=== PATIENT | female | born 1980 | race Caucasian/White ===

== ENCOUNTER 2017-12-15 10:25 | Inpatient (IN) | payer OTHER ==
[2017-12-15] MEDS ORDERED: IOPAMIDOL (ISOVUE-300) 100 ML BTL ONE (10:45)
[2017-12-15 10:48] LABS: PLATELET COUNT 229 10^3/uL (150-400)
--- NOTE | 2017-12-15 10:49 | EDPHY ---
H & P Time Seen by Provider: 12/15/17 10:35 HPI/ROS: CHIEF COMPLAINT: Head injury, full trauma team activation HISTORY OF PRESENT ILLNESS: 29-year-old female presents with a head injury after a fall. She was at work, standing on a dumpster and apparently fell off the dumpster directly onto her head. Positive loss of consciousness. Confused on scene, complaining of a severe headache. On EMS arrival, she was confused and had a scalp laceration. Also complaining of left shoulder pain. Full trauma team activation called. Fentanyl 50 mcg IV given in route. REVIEW OF SYSTEMS: complete 10 point ROS reviewed and is negative except for the noted elements in the HPI - Social History Alcohol Use: Sober Additional Social History: - Physical Exam Exam: General Appearance: Alert, complaining of headache Head: Right temporal scalp laceration, no active bleeding Eyes: No conjunctival erythema, PERRLA, EOMI ENT, Mouth: No hemotympanum, no oral trauma, no facial bony tenderness Neck: In cervical spine collar Respiratory: No chest wall tenderness, lungs clear bilaterally Cardiovascular: Regular rate and rhythm Abdomen: Abdomen is soft and nontender Skin: no abrasions Back: Log-rolled, normal inspection, no midline T/L/S tenderness Extremities: Pelvis is stable and nontender; left shoulder tenderness without deformity, no other extremity tenderness or deformity Neurological: A&Ox3, normal motor function, cranial nerves intact Vascular: 2+ radial pulses Constitutional: Initial Vital Signs Temperature (C) 36.8 C 12/15/17 12:51 Heart Rate 96 12/15/17 12:51 Respiratory Rate 12 12/15/17 12:51 Blood Pressure 124/73 H 12/15/17 12:51 O2 Sat (%) 95 12/15/17 12:51 Allergies/Adverse Reactions: No Known Allergies Allergy (Verified 12/15/17 13:52) Home Medications: Medication Instructions Recorded NK [No Known Home Meds] 12/15/17 Medical Decision Making - Diagnostics Imaging Results: Imaging Impressions Cervical Spine CT 12/15/17 10:32 Impression: 1. Acute subarachnoid hemorrhage. Blood is possibly originating in the prepontine cistern near the basilar artery tip. 2. Nondisplaced right temporal bone fracture with associated fluid in the mastoid air cells and middle ear cavity. Parapharyngeal air is probably related to this fracture. 3. Negative for cervical spine fracture. Findings and recommendations discussed with [facility] trauma surgeon at 1110 hour, . Head CT 12/15/17 10:32 Impression: 1. Acute subarachnoid hemorrhage. Blood is possibly originating in the prepontine cistern near the basilar artery tip. 2. Nondisplaced right temporal bone fracture with associated fluid in the mastoid air cells and middle ear cavity. Parapharyngeal air is probably related to this fracture. 3. Negative for cervical spine fracture. Findings and recommendations discussed with [facility] trauma surgeon at 1110 hour, . Abdomen CT 12/15/17 10:35 Impression: 1. Age-indeterminate, possibly old/subacute nondisplaced fracture through the superior aspect of the T12 spinous process. 2. 7 mm left lower lobe nodule. The 2017 Fleischner Society Guidelines recommend followup unenhanced chest CT in 6-12 months for a low risk patient, then consider additional followup at 18-24 months. For a high risk patient, followup CT is recommended in 6-12 months, then again at 18-24 months if there is no change. 3. Moderate paraseptal emphysema. 4. Mildly prominent prevascular lymph node, which can also be followed in [address] 5. Additional findings as above. Findings discussed with Dr. Diane Ruby on 12/15/2017 at 11:40. Findings discussed with Dr. Jeremi Dukes today at [address] 12/15/17 10:35 Impression: 1. Age-indeterminate, possibly old/subacute nondisplaced fracture through the superior aspect of the T12 spinous process. 2. 7 mm left lower lobe nodule. The 2017 Fleischner Society Guidelines recommend followup unenhanced chest CT in 6-12 months for a low risk patient, then consider additional followup at 18-24 months. For a high risk patient, followup CT is recommended in 6-12 months, then again at 18-24 months if there is no change. 3. Moderate paraseptal emphysema. 4. Mildly prominent prevascular lymph node, which can also be followed in [address] 5. Additional findings as above. Findings discussed with Dr. Diane Ruby on 12/15/2017 at 11:40. Findings discussed with Dr. Jeremi Dukes today at [address] 12/15/17 10:35 Impression: 1. Age-indeterminate, possibly old/subacute nondisplaced fracture through the superior aspect of the T12 spinous process. 2. 7 mm left lower lobe nodule. The 2017 Fleischner Society Guidelines recommend followup unenhanced chest CT in 6-12 months for a low risk patient, then consider additional followup at 18-24 months. For a high risk patient, followup CT is recommended in 6-12 months, then again at 18-24 months if there is no change. 3. Moderate paraseptal emphysema. 4. Mildly prominent prevascular lymph node, which can also be followed in [address] 5. Additional findings as above. Findings discussed with Dr. Diane Ruby on 12/15/2017 at 11:40. Findings discussed with Dr. Jeremi Dukes today at [address] 12/15/17 10:35 Impression: 1. Age-indeterminate, possibly old/subacute nondisplaced fracture through the superior aspect of the T12 spinous process. 2. 7 mm left lower lobe nodule. The 2017 Fleischner Society Guidelines recommend followup unenhanced chest CT in 6-12 months for a low risk patient, then consider additional followup at 18-24 months. For a high risk patient, followup CT is recommended in 6-12 months, then again at 18-24 months if there is no change. 3. Moderate paraseptal emphysema. 4. Mildly prominent prevascular lymph node, which can also be followed in [address] 5. Additional findings as above. Findings discussed with Dr. Diane Ruby on 12/15/2017 at 11:40. Findings discussed with Dr. Jeremi Dukes today at 1125 hours. Chest X-Ray 12/15/17 10:51 Impression: Potential cardiomegaly. A routine PA and lateral chest would be useful if and when the patient is clinically able. The patient's pending chest CT will be helpful. Pelvis X-Ray 12/15/17 10:51 Impression: Negative Imaging: Discussed imaging studies w/ slip caster Radiologist, I viewed and interpreted images myself ED Course/Re-evaluation: This patient presents as a full trauma activation with severe headache after a fall. Physical exam reveals a scalp laceration. Neurologic exam is normal. To CT scan accompanied by Dr. Dukes and the ED RN. Upon return from CT scan, the scalp laceration was sutured by Dr. Dukes medical student. CT results per the radiologist reveal a subarachnoid hemorrhage and temporal skull fracture. The patient's neurologic exam was unchanged throughout her emergency department stay. No evidence of other injuries. She will be admitted to the intensive care unit for serial neurologic evaluations. I spent a total of 35 minutes of critical care time in obtaining history, performing a physical exam, bedside monitoring of interventions, collecting and interpreting tests and discussion with consultants but not including time spent performing procedures. Organ at risk: Brain Differential Diagnosis: Differential diagnosis includes though it is not limited to fracture, intracranial hemorrhage, pneumothorax, hemothorax, intra-abdominal hemorrhage. - Data Points Laboratory Results: Laboratory Results 12/15/17 10:35 12/15/17 10:35 12/15/17 12/15/17 12/15/17 10:48 10:39 10:35 WBC RBC Hgb POC Hgb 13.3 gm/dL gm/dL 12.6 gm/dL gm/dL (12.6-16.3) (12.6-16.3) Hct POC Hct 39 % % 37 % L % (38-47) (38-47) MCV MCH MCHC RDW Plt Count MPV Neut % (Auto) Lymph % (Auto) Sierra % (Auto) Eos % (Auto) Baso % (Auto) Nucleat RBC Rel Count Absolute Neuts (auto) Absolute Lymphs (auto) Absolute Monos (auto) Absolute Eos (auto) Absolute Basos (auto) Absolute Nucleated RBC Immature Gran % Immature Gran # POC Sodium 144 mEq/L mEq/L 143 mEq/L mEq/L (135-145) (135-145) Sodium POC Potassium 3.4 mEq/L mEq/L 3.4 mEq/L mEq/L (3.3-5.0) (3.3-5.0) Potassium POC Chloride 106 mEq/L mEq/L 106 mEq/L mEq/L (97-110) (97-110) Chloride Carbon Dioxide Anion Gap POC BUN 16 mg/dL mg/dL 16 mg/dL mg/dL (7-23) (7-23) BUN Creatinine POC Creatinine 0.6 mg/dL mg/dL 0.7 mg/dL mg/dL (0.6-1.0) (0.6-1.0) Estimated GFR Glucose POC Glucose 83 mg/dL mg/dL 85 mg/dL mg/dL (70-100) (70-100) Calcium Beta HCG, Qual NEGATIVE 12/15/17 12/15/17 10:35 10:35 WBC 7.39 10^3/uL 10^3/uL (3.80-9.50) RBC 4.59 10^6/uL 10^6/uL (4.18-5.33) Hgb 13.2 g/dL g/dL (12.6-16.3) POC Hgb Hct 39.5 % % (38.0-47.0) POC Hct MCV 86.1 fL fL (81.5-99.8) MCH 28.8 pg pg (27.9-34.1) MCHC 33.4 g/dL g/dL (32.4-36.7) RDW 14.6 % % (11.5-15.2) Plt Count 229 10^3/uL 10^3/uL (150-400) MPV 9.4 fL fL (8.7-11.7) Neut % (Auto) 76.4 % H % (39.3-74.2) Lymph % (Auto) 16.9 % % (15.0-45.0) Sierra % (Auto) 6.0 % % (4.5-13.0) Eos % (Auto) 0.1 % L % (0.6-7.6) Baso % (Auto) 0.5 % % (0.3-1.7) Nucleat RBC Rel Count 0.0 % % (0.0-0.2) Absolute Neuts (auto) 5.64 10^3/uL 10^3/uL (1.70-6.50) Absolute Lymphs (auto) 1.25 10^3/uL 10^3/uL (1.00-3.00) Absolute Monos (auto) 0.44 10^3/uL 10^3/uL (0.30-0.80) Absolute Eos (auto) 0.01 10^3/uL L 10^3/uL (0.03-0.40) Absolute Basos (auto) 0.04 10^3/uL 10^3/uL (0.02-0.10) Absolute Nucleated RBC 0.00 10^3/uL 10^3/uL (0-0.01) Immature Gran % 0.1 % % (0.0-1.1) Immature Gran # 0.01 10^3/uL 10^3/uL (0.00-0.10) POC Sodium Sodium 143 mEq/L mEq/L (135-145) POC Potassium Potassium 3.7 mEq/L mEq/L (3.3-5.0) POC Chloride Chloride 106 mEq/L mEq/L (97-110) Carbon Dioxide 27 mEq/l mEq/l (22-31) Anion Gap 10 mEq/L mEq/L (8-16) POC BUN BUN 18 mg/dL mg/dL (7-23) Creatinine 0.6 mg/dL mg/dL (0.6-1.0) POC Creatinine Estimated GFR > 60 Glucose 80 mg/dL mg/dL (70-100) POC Glucose Calcium 9.4 mg/dL mg/dL (8.5-10.4) Beta HCG, Qual Medications Given: Morphine Sulfate (Morphine) 2 - 5 mg IVP Q1HR PRN PRN Reason: Pain, Severe Unable to Take PO Stop: 12/25/17 11:51 Last Admin: 12/15/17 15:30 Dose: 5 mg Discontinued Medications Diphtheria/Tetanus/Acell Pertussis (Boostrix) 0.5 ml IM .ONCE ONE Stop: 12/15/17 11:19 Last Admin: 12/15/17 11:30 Dose: 0.5 ml Hydromorphone HCl (Dilaudid) 0.5 mg IVP EDNOW ONE Stop: 12/15/17 11:19 Last Admin: 12/15/17 10:48 Dose: 0.5 mg Hydromorphone HCl (Dilaudid) 1 mg IVP EDNOW ONE Stop: 12/15/17 11:21 Last Admin: 12/15/17 11:22 Dose: 1 mg Morphine Sulfate (Morphine) 4 mg IVP EDNOW ONE Stop: 12/15/17 11:19 Last Admin: 12/15/17 10:33 Dose: 4 mg Morphine Sulfate (Morphine) 4 mg IVP EDNOW ONE Stop: 12/15/17 11:19 Last Admin: 12/15/17 10:28 Dose: 4 mg Ondansetron HCl (Zofran) 4 mg IVP EDNOW ONE Stop: 12/15/17 11:19 Last Admin: 12/15/17 10:27 Dose: 4 mg Point of Care Test Results: Chemistry 12/15/17 12/15/17 10:48 10:39 POC Sodium 144 mEq/L mEq/L 143 mEq/L mEq/L (135-145) (135-145) POC Potassium 3.4 mEq/L mEq/L 3.4 mEq/L mEq/L (3.3-5.0) (3.3-5.0) POC Chloride 106 mEq/L mEq/L 106 mEq/L mEq/L (97-110) (97-110) POC BUN 16 mg/dL mg/dL 16 mg/dL mg/dL (7-23) (7-23) POC Creatinine 0.6 mg/dL mg/dL 0.7 mg/dL mg/dL (0.6-1.0) (0.6-1.0) POC Glucose 83 mg/dL mg/dL 85 mg/dL mg/dL (70-100) (70-100) ISTAT H&H 12/15/17 12/15/17 10:48 10:39 POC Hgb 13.3 gm/dL gm/dL 12.6 gm/dL gm/dL (12.6-16.3) (12.6-16.3) POC Hct 39 % % 37 % L % (38-47) (38-47) Departure - Departure Disposition: [facility] Inpatient Acute Clinical Impression: SAH (subarachnoid hemorrhage) Temporal bone fracture Qualifiers: Encounter type: initial encounter Fracture type: closed Qualified Code(s): S02.19XA - Other fracture of base of skull, initial encounter for closed fracture Condition: Serious
[2017-12-15] MEDS ORDERED: HYDROmorphONE/DILAUDID 1 MG/ML INJ ONE (11:17)
[2017-12-15] MEDS ORDERED: TDAP ADULT 0.5 ML INJ (BOOSTRIX) IM ONE (11:18)
[2017-12-15] MEDS ORDERED: HYDROmorphONE/DILAUDID 2 MG/ML INJ IVP ONE ×2 (11:18→11:20)
[2017-12-15] MEDS ORDERED: ONDANSETRON 4 MG/2 ML VIAL IVP ONE (11:18)
--- NOTE | 2017-12-15 11:43 | SOAPPROG ---
RENETTA Progress Note Assessment/Plan: Pt seen in ED room 2 by Neurosurgical Service at 1115 am 12/15/17. Pt with right temporal bone fracture with left acute SAH. Admit to SDU. Repeat CT at 1400 today Neuro checks q1 hr Call with any questions or concerns Dictation to follow Neuro intact 12/15/17 11:41 ICD10 Worksheet Patient Problems: Problems Problem Status Onset Fall Acute SAH (subarachnoid hemorrhage) Acute Temporal bone fracture Acute - ICD10 Problem Qualifiers (1) Temporal bone fracture Qualifiers: Encounter type: initial encounter Fracture type: closed Qualified Code(s) : S02.19XA - Other fracture of base of skull, initial encounter for closed fracture (2) SAH (subarachnoid hemorrhage) (3) Fall Qualifiers: Encounter type: initial encounter Qualified Code(s): W19.XXXA - Unspecified fall, initial encounter
[2017-12-15] MEDS ORDERED: ONDANSETRON 4 MG/2 ML VIAL IVP PRN (11:52)
[2017-12-15] MEDS ORDERED: NALOXONE HCL 0.4 MG/ML INJ IVP PRN (11:52)
--- NOTE | 2017-12-15 11:52 | PDGENHP ---
History and Physical - Chief Complaint FTA/fall from 10-5 ft. height/LOC - History of Present Illness 35 y/o female BIB [employer] as a FTA after a witnessed fall at a [employer] jobsite. She was standing on top of a roll off dumpster and fell forward landing on her right side head first. She had LOC immediately and regained consciousness several minutes later. She was confused and perseverating in the field and I met her in the [facility] on arrival with Dr. Rachel Ruby. She was awake and complaining of headache and right shoulder pain. History Information - Allergies/Home Medication List Allergies/Adverse Reactions: No Known Allergies Allergy (Unverified 12/15/17 10:46) I have personally reviewed and updated: family history, medical history, social history, surgical history - Past Medical History no pertinent PMH - Surgical History Reports: cholecystectomy - Family History Positive for: non-pertinent - Social History Smoking Status: Current every day smoker Tobacco Use: Cigarettes Alcohol Use: Sober Drug Use: Other (denies) Additional social history: /working with her on a [employer] crew/ they live in [place] Review of Systems Review of Systems: Constitutional: Reports: recent injury EENMT: Reports: other (Headache/denies hearing loss or visual disturbance) Cardiac: Reports: no symptoms Respiratory: Reports: no symptoms Gastrointestinal: Reports: no symptoms Genitourinary: Reports: no symptoms Muscolosketal: Reports: back pain Neurological: Reports: headache Physical Exam Physical Exam: Constitutional: other (WDWN younger woman in moderated distress) Eyes: PERRL, EOMI Ears, Nose, Mouth, Throat: other (no hemotympanum/stellate right parietal scalp laceration 8 cm) Cardiovascular: regular rate and rhythym, no murmur, rub, or gallop Peripheral Pulses: 4+: carotid (R), carotid (L), femoral (R), femoral (L), dorsalis-pedis (R), dorsalis-pedis (L) Respiratory: reduced air movement Gastrointestinal: normoactive bowel sounds, soft, non-tender abdomen Genitourinary: no bladder fullness, no bladder tenderness Skin: warm, other (abrasion/contusion right shoulder) Musculoskeletal: normal joint ROM Neurologic: sensation intact bilaterally (Oriented to person and place/not able to recall date. Amnestic for > 1 day prior to injury), CN II-XII Intact, other (Oriented to ) Lymph, Heme, Immunologic: no cervical LAD, no supraclavicular LAD Lab Data & Imaging Review 12/15/17 10:35 12/15/17 10:35 WBC 7.39 10^3/uL (3.80-9.50) 12/15/17 10:35 RBC 4.59 10^6/uL (4.18-5.33) 12/15/17 10:35 Hgb 13.2 g/dL (12.6-16.3) 12/15/17 10:35 POC Hgb 13.3 gm/dL (12.6-16.3) 12/15/17 10:48 Hct 39.5 % (38.0-47.0) 12/15/17 10:35 POC Hct 39 % (38-47) 12/15/17 10:48 MCV 86.1 fL (81.5-99.8) 12/15/17 10:35 MCH 28.8 pg (27.9-34.1) 12/15/17 10:35 MCHC 33.4 g/dL (32.4-36.7) 12/15/17 10:35 RDW 14.6 % (11.5-15.2) 12/15/17 10:35 Plt Count 229 10^3/uL (150-400) 12/15/17 10:35 MPV 9.4 fL (8.7-11.7) 12/15/17 10:35 Neut % (Auto) 76.4 % (39.3-74.2) H 12/15/17 10:35 Lymph % (Auto) 16.9 % (15.0-45.0) 12/15/17 10:35 Gilchrist % (Auto) 6.0 % (4.5-13.0) 12/15/17 10:35 Eos % (Auto) 0.1 % (0.6-7.6) L 12/15/17 10:35 Baso % (Auto) 0.5 % (0.3-1.7) 12/15/17 10:35 Nucleat RBC Rel Count 0.0 % (0.0-0.2) 12/15/17 10:35 Absolute Neuts (auto) 5.64 10^3/uL (1.70-6.50) 12/15/17 10:35 Absolute Lymphs (auto) 1.25 10^3/uL (1.00-3.00) 12/15/17 10:35 Absolute Monos (auto) 0.44 10^3/uL (0.30-0.80) 12/15/17 10:35 Absolute Eos (auto) 0.01 10^3/uL (0.03-0.40) L 12/15/17 10:35 Absolute Basos (auto) 0.04 10^3/uL (0.02-0.10) 12/15/17 10:35 Absolute Nucleated RBC 0.00 10^3/uL (0-0.01) 12/15/17 10:35 Immature Gran % 0.1 % (0.0-1.1) 12/15/17 10:35 Immature Gran # 0.01 10^3/uL (0.00-0.10) 12/15/17 10:35 POC Sodium 144 mEq/L (135-145) 12/15/17 10:48 Sodium 143 mEq/L (135-145) 12/15/17 10:35 POC Potassium 3.4 mEq/L (3.3-5.0) 12/15/17 10:48 Potassium 3.7 mEq/L (3.3-5.0) 12/15/17 10:35 POC Chloride 106 mEq/L (97-110) 12/15/17 10:48 Chloride 106 mEq/L (97-110) 12/15/17 10:35 Carbon Dioxide 27 mEq/l (22-31) 12/15/17 10:35 Anion Gap 10 mEq/L (8-16) 12/15/17 10:35 POC BUN 16 mg/dL (7-23) 12/15/17 10:48 BUN 18 mg/dL (7-23) 12/15/17 10:35 Creatinine 0.6 mg/dL (0.6-1.0) 12/15/17 10:35 POC Creatinine 0.6 mg/dL (0.6-1.0) 12/15/17 10:48 Estimated GFR > 60 12/15/17 10:35 Glucose 80 mg/dL (70-100) 12/15/17 10:35 POC Glucose 83 mg/dL (70-100) 12/15/17 10:48 Calcium 9.4 mg/dL (8.5-10.4) 12/15/17 10:35 Beta HCG, Qual NEGATIVE 12/15/17 10:35 Visualized and Interpreted Chest x-ray results: Yes Chest X-Ray results: no infiltrate, other (old rib fx right posterior 3, 4, 5 ribs) Visualized and Interpreted imaging results: Yes Interpretation: CT head right temporal bone fracture with blood/fluid mastoid and middle ear, left parietal SAH/ICH, no SDH/EDH/midline shift Assessment & Plan Assessment: Fall at work Closed head injury with LOC <30 minutes SAH (subarachnoid hemorrhage) (Acute) Temporal bone fracture (Acute) Scalp laceration right parietal Plan: serial CT/facial bone CT to assess right TMJ scalp lac sutured in the ED Neurosurgery consult appreciated/discussed with Maxime Kelly PA-C
--- NOTE | 2017-12-15 12:52 | GCON ---
CONSULTATION WITH HISTORY AND PHYSICAL She came in as a full trauma #[id number]. CHIEF COMPLAINT: Head injury, full trauma activation, fall from approximately 10 feet. Patient seen in the emergency department by neurosurgical services at 11:15 a.m. in room 2. HISTORY OF PRESENT ILLNESS: Mary is a 35-year-old female that came in as a full trauma activation t [facility] Emergency Department. She reportedly was at work today. She works at a [employer]. She was standing on a dumpster trailer that was approximately 8 feet off the groun d when she was pushing some material into the dumpster itself. Some of that material broke causing h er to fall forward, striking her head. There was loss of consciousness. She was confused on the sce ne. She was complaining of a severe headache on presentation to the emergency department. She did h ave a right-sided scalp laceration, which was repaired pre trauma services. A full trauma team marian garza was called. Dr. Dukes did see the patient. A CT scan of the head was done and showed a right-s ided temporal fracture as well as a contrecoup subarachnoid hemorrhage. She denies any cervical spin e pain. She does have some right shoulder pain. Denies any upper extremity complaints such as numbn ess, tingling, weakness, or pain. No saddle anesthesia. No lower back pain or thoracic spine pain. No fevers or chills. PAST MEDICAL HISTORY: None listed. PAST SURGICAL HISTORY: None listed. MEDICATIONS: She takes occasional acetaminophen for some headaches that she gets on occasion. ALLERGIES: None listed. IMMUNIZATIONS: Brought up to date. SOCIAL HISTORY: Patient has a boyfriend who is at the bedside. She lives, reported in the [facility]. She works for this [employer]. REVIEW OF SYSTEMS: A complete 10-point review of systems was done and negative except as noted. JUAN M NT: The patient complains of a headache. No diplopia. No blurred vision. No loss of visual field. No hearing loss, tinnitus, or vertigo. PULMONARY: No cough, sputum production, hemoptysis, dyspne a, or pleuritic chest pain. CARDIAC: No chest pain or pressure. No palpitations. GI: No weight l oss or gain. No nausea, vomiting, or diarrhea. : No dysuria, hematuria, nocturia, urgency, or fr equency. NEURO: Patient denies any dizziness, syncope history, seizures, vertigo, or paresthesias. PSYCHIATRIC: No suicidality or homicidality. PHYSICAL EXAMINATION: GENERAL: This is an awake, alert, and oriented female with a GCS of 15. ELTON L SIGNS: Most recent, please see trauma note. Vital signs stable. HEENT: Head is normocephalic. She does have some laceration noted in the right occipital parietal area that was repaired via Trauma Services. She does have some right-sided TMJ pain. Pupils are equal, round, and reactive to light. EOMI is intact. Full visual clark by confrontation. Ears are patent. Nose is patent. NECK: So ft and supple. No midline tenderness. Full range of motion on flexion, extension, lateral bending, rotation. RESPIRATORY AND CARDIAC: Deferred. ABDOMEN: Soft, nontender. No peritoneal signs. AND RECTAL: Deferred. NEURO: Patient is awake, alert, and oriented to name, place, location, date, and time of week. Memory is intact to past events but not recent fall. Speech no aphasia, dysarthr ia, dysphonia. Cranial nerves 2-12 grossly intact. Motor patient has 5/5 strength in all muscle antonio ups of bilateral upper and lower extremities to include deltoids, biceps, triceps, brachioradialis, w rist flexion, extensors, facial operator, , iliopsoas, quadriceps, hamstring, plantar flexion, dorsifl exion, EHL testing. Sensation is grossly intact to light touch throughout all dermatome distribution s upper extremities. Negative straight leg raise. Negative ALANNAH test. Reflexes of biceps, triceps , brachioradialis, knee jerks, and ankle jerk 2+/4. Toes are downgoing bilaterally. Richards's negat laila. Babinski negative. No clonus. MEDICAL DECISION MAKING DIAGNOSTIC STUDIES: Laboratory tests obtained on 12/15/2017, shows a white c ount of 7.39 with H and H of 13.2 and 39.5, a platelet count of 229. Chemistry on 12/15/2017: Sodiu m 144, potassium 3.4, chloride 106, CO2 27, BUN 18, creatinine 0.6, and a glucose of 82. t est was negative. Imaging: CT scan of the head and neck obtained 12/15/2017, at 10:32 am shows an acute subarachnoid h emorrhage, left hemisphere in the prepontine cistern. No significant midline shift is appreciated. There is a subgaleal hematoma noted. There is a nondisplaced right temporal bone fracture with assoc iated fluid in the mastoid air cells. There is no cervical spine fracture. Upon my review it appear s there is some irregularity in the TMJ joint on the right side. She does have some pain in this are a, and a CT scan of the maxillofacial bones was ordered when we repeat her neck CT scan of her head. She had a chest, abdomen, pelvis CT as well as shoulder x-rays. We will defer to Trauma Services for this. IMPRESSIONS: 1. Fall approximately 10 feet. 2. Full trauma activation. 3. Right temporal bone fracture with acute subarachnoid hemorrhage on the right side. PLAN AND DISCUSSION: The patient is a 35-year-old female who will be admitted to the trauma services for this fall. She came in as a full trauma team activation. She was seen in the emergency departm ent by neurosurgical services. We did review her CT scan. Dr. Acevedo recommended a repeat CT scan i n 3-4 hours. I also ordered a CT scan of the maxillofacial bones to evaluate the TMJ. She had a lac eration noted to the right side of her head, which was repaired via trauma services. She will be adm itted with q.1 hour neuro checks. She has a GCS currently of 15. She came in confused, but is awake , alert, oriented now. She is able to follow commands appropriately. She does complain of a general ized headache mainly pain over the right side where she struck her head. All questions and concerns were answered. /[id number]/MODL
--- NOTE | 2017-12-15 13:13 | POSTOPPROG ---
Post Op Note Date of Operation: 12/15/17 Surgeon: Jeremi Dukes Anesthesia: Local (Specify) Pre-op Diagnosis: scalp laceration Post-op Diagnosis: same Procedure: repair scalp laceration Inf/Abcess present in the surg proc area at time of surgery?: No EBL: Minimal
--- NOTE | 2017-12-15 13:32 | GOP ---
DATE OF OPERATION: 12/15/2017 SURGEON: Jeremi Dukes MD ANESTHESIA: Local. PREOPERATIVE DIAGNOSIS: Right parietal scalp laceration. POSTOPERATIVE DIAGNOSIS: Right parietal scalp laceration. PROCEDURE PERFORMED: Repair of right parietal scalp laceration, 8 cm, stellate. FINDINGS: Full-thickness scalp laceration without significant active bleeding. Irrigated, debrided, and repaired with a single layer of interrupted 3-0 Prolene sutures. ESTIMATED BLOOD LOSS: 10 cc or less. DESCRIPTION OF PROCEDURE: After discussing the procedure with the patient and obtaining informed con sent, the right scalp was prepped with Betadine. The wound was infiltrated with 1% lidocaine with ep inephrine and irrigated copiously with sterile water. The skin edges were debrided and approximated with interrupted 3-0 Prolene sutures. There was a stellate portion to the laceration, which was repa ired in both directions with a small triangle of skin that was approximated, again, with 3-0 Prolene sutures. Topical bacitracin ointment was applied. The patient tolerated the procedure well. COMPLICATIONS: None. /[id number]/MODL
--- NOTE | 2017-12-15 14:12 | PDMN ---
Medical Necessity Medical necessity: MCG: M-79 subarachnoid hemorrhage, non surgical-- fall from 10 ft. - acute SAH with + LOC, CT shows R temporal bone fx with blood/fluid mastoid and middle ear, L parietal SAH/ICH, no SDH or mid line shift noted, subgaleal hematoma noted. TMJ joint irregularity also noted. repeat CT 's and q 1 hr. neuro checks per neurology consult.
--- NOTE | 2017-12-15 16:56 | SOAPPROG ---
Downtime Inpatient MD Late Entry SOAP Note: repeat CT shows stable L SAH/SDH, small left frontal IPH has developed. Additional social hx reveals benzo use for anxiety/patient having uncontrolled pain will Rx with low dose Ativan to augment narcotic effect continue ICU monitoring/frequent neurochecks.
[2017-12-15] MEDS: FAMOTIDINE 20 MG/NACL 50 ML IV SCH ×2 (18:11→22:24)
[2017-12-15] MEDS: LORazepam 2 MG/ML INJ IVP PRN ×2 (18:25→23:40)
[2017-12-16] MEDS: LORazepam 2 MG/ML INJ IVP PRN ×4 (03:28→21:10)
[2017-12-16] MEDS ORDERED: OXYCODONE/APAP 5/325 TAB PO PRN (06:10)
[2017-12-16] MEDS ORDERED: LACTULOSE 20 GM/30 ML UDCUP PO PRN (06:11)
[2017-12-16] MEDS ORDERED: MAGNESIUM HYDROXIDE 30 ML UDCUP PO PRN (06:11)
[2017-12-16] MEDS ORDERED: BISACODYL 10 MG SUPP PR PRN (06:11)
[2017-12-16] MEDS ORDERED: POLYETHYLENE GLYCOL 3350 17 GM PKT PO PRN (06:11)
--- NOTE | 2017-12-16 08:01 | NEUSURGPN ---
Assessment/Plan: Assessment: 35 yo female that is s/p fall with right temporal bone fracture as well as SAH and small SDH Plan: -Repeat CT head shows stable SAH/SDH. New small left frontal lobe IPH -CT maxillofacial was neg except for noted right sided temporal bone fracture -GCS 15 -neuro intact -pt with some right sided LOBO -scalp laceration intact and well approximated -ok for SDU -ok for tylenol and/or oxycodone for pain -q4 hr neuro checks -pt understands and agrees -call with any questions or concerns -PT/OT/ST needs to see as well -pt seen by Dr Acevedo as well this am -pt with LLL nodule that Dr Dukes gave recommendations to pt/boyfriend to follow up on in 6-12 months Subjective: Awake and alert. No new complaints or concerns. No f/c/n/v/d. Pt with continued right sided LOBO. No neck/chest/abd or gu complaints. Objective: AAO x 3, PERRLA/EOMI no droop CN 2-12 grossly intact +lt touch 5/5 BUE/BLE = CDI to right scalp incision Neuro Check Frequency: q4 - Physician Discussed Patient with : Curtis Patient Seen by : Curtis Neurosurgery Physical Exam - Vitals, I&O, Labs I and O 12/15/17 12/16/17 12/17/17 05:59 05:59 05:59 Intake Total 1718 Balance 1718 Weight 64.8 kg Intake: Oral (ml) 500 IV Intake (ml) 218 IV Infused (ml) 1000 Other: Number of Voids Bedpan 1 Vital Signs Temp Pulse Resp BP Pulse Ox 38.1 C 92 19 107/61 98 12/16/17 04:00 12/16/17 06:00 12/16/17 06:00 12/16/17 06:00 12/16/17 06:00 ICD10 Worksheet Patient Problems: Problems Problem Status Onset Fall Acute SAH (subarachnoid hemorrhage) Acute Temporal bone fracture Acute - ICD10 Problem Qualifiers (1) Temporal bone fracture Qualifiers: Encounter type: initial encounter Fracture type: closed Qualified Code(s) : S02.19XA - Other fracture of base of skull, initial encounter for closed fracture (2) SAH (subarachnoid hemorrhage) (3) Fall Qualifiers: Encounter type: initial encounter Qualified Code(s): W19.XXXA - Unspecified fall, initial encounter
[2017-12-16] MEDS: ACETAMINOPHEN 325 MG TAB PO PRN ×3 (08:32→18:09)
[2017-12-16] MEDS: FAMOTIDINE 20 MG/NACL 50 ML IV SCH (08:32)
[2017-12-16] MEDS: SENNOSIDES/DOCUSATE SODIUM TAB PO SCH ×2 (08:32→19:26)
[2017-12-16] MEDS: oxyCODONE IR 5 MG TAB PO PRN ×3 (10:55→19:27)
--- NOTE | 2017-12-16 11:33 | TRAUMAPN ---
Trauma Progress Note Assessment/Plan: 35 y/o F s/p fall while at work [employer], SAH, SDH: repeat CT stable. NS will take over primary for this pt and trauma will sign off. Temporal bone fx R parietal scalp laceration: sutures can come out in 7-10 days. Follow up in Dr. Guerin' office for this. Ok to downgrade to SDU status S: Up working with PT at time of visit. Biggest complaint is headache. O: Neuro grossly intact Afebrile RRR No increased WOB Abdomen soft, nontender Objective: Vital Signs Temp Pulse Resp BP Pulse Ox 36.9 C 86 22 H 107/68 97 12/16/17 08:00 12/16/17 08:00 12/16/17 08:00 12/16/17 08:00 12/16/17 08:00 12/15/17 12/16/17 12/17/17 05:59 05:59 05:59 Intake Total 1718 Balance 1718
[2017-12-16] MEDS: NICOTINE 21 MG/24 HR PATCH TD SCH (11:41)
--- NOTE | 2017-12-16 12:34 | SOAPPROG ---
SOAP Progress Note Assessment/Plan: Assessment: SEEN WITH MY NURSE PRACTITIONER MARVIN ESTRELLA/PLEASE REFER TO HER NOTE HEAD INJURY AFTER FALL FROM 12 FT WITH RIGHT TEMPORAL BONE FRACTURE AND A SMALL LEFT SUBDURAL VITAL SIGNS STABLE, AFEBRILE HEENT THE SCALP PLAQUE CHEST CLEAR AND SYMMETRIC AND NONTENDER COR REGULAR RHYTHM ABDOMEN SOFT NONTENDER EXTREMITIES WEEK BUT FULL PULSES AND FULL RANGE OF MOTION NEURO EXAM SHE IS ORIENTED AND RESPONSIVE BUT VERY SOMNOLENT Plan: TRAUMA SERVICE WILL SIGN OFF AND LEAVE PRIMARY CARE TO NEUROSURGERY MORE WILLING TO ACCEPT THAT 12/16/17 12:30 Objective: Vital Signs Temp Pulse Resp BP Pulse Ox 37.1 C 106 H 32 H 107/54 L 94 12/16/17 11:46 12/16/17 11:46 12/16/17 11:46 12/16/17 11:46 12/16/17 11:46 12/15/17 12/16/17 12/17/17 05:59 05:59 05:59 Intake Total 1718 Balance 1718 ICD10 Worksheet Patient Problems: Problems Problem Status Onset Fall Acute SAH (subarachnoid hemorrhage) Acute Temporal bone fracture Acute
--- NOTE | 2017-12-16 14:45 | ASMTCASEMG ---
Living Arrangements What is your living Answers: With Spouse arrangement? Who do you live with? Type Of Residence What kind of residence do Answers: House you live in? Discharge Plan Comments Coordination Status Comments Notes: Patient is a 35yo female who sustained a skull fracture from falling off a dumpster and landing on her head on a job site. Patient works for a [employer] company, [employer] and this will be a worker's comp with [employer]. Arlene Augustin, and fax [phone] is the worker's comp career development director for [employer]. Patient's is primarily Sinhala speaking. Patient was admitted for closed head injury with LOC, SAH, acute, temporal bone fracture and scalp laceration right parietal. OT/PT/PARAPROFESSIONAL INTERPRETER/Inpatient rehab all have been ordered. D/C plan TBD. CM will follow. Date Signed: 12/16/2017 02:45 PM Electronically Signed By:Alsysa Arboleda LCSW
--- NOTE | 2017-12-16 17:59 | GCON ---
CRITICAL CARE CONSULTATION. 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 This was associated with loss of consciousness and a closed head i njury. 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 She fell into the dumpster and landed at the bottom on her head on the right side . She had loss consciousness for several minutes. She was extricated and brought to the emergency d [facility]. She had headache on arrival and right shoulder pain. CT scan of the head was performed. This showed a nondisplaced temporal bone fracture with some blood in the mastoid and middle ear on t he right and a small subarachnoid hemorrhage and area of intracerebral blood on the left. She was ad mitted to the intensive care unit for neuro checks. Multiple other radiologic studies showed no evid ence of significant injury. Shoulder films were negative. There was no evidence of fracture or disl ocation of the left shoulder. Neck, spine, chest and abdomen were all negative by CT scan as was cer vical spine. The patient was admitted to the intensive care unit overnight. She continues to complain of 10/10 pa in despite treatment with IV morphine and oxycodone. She is anxious and not responding to Ativan. S he wants to go home and is threatening to sign out against medical advice. A followup CT scan this a fternoon has been ordered by Neurosurgery. PAST MEDICAL HISTORY: Unremarkable for active medical problems. The patient does smoke a pack of cigarettes per day and has a chronic cough. She is on no inhalers. SOCIAL HISTORY: The patient is . She denies alcohol. 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 PAST SURGICAL HISTORY: Cholecystectomy. FAMILY HISTORY: Negative/noncontributory. REVIEW OF SYSTEMS: Negative for heart disease, thromboembolic disease, thyroid, etc. PHYSICAL EXAMINATION: GENERAL: Reveals a woman who is sitting up in a chair. She complains of a he adache. VITAL SIGNS: Blood pressure is 114/68, heart rate 100 with sinus rhythm on the monitor. Res piratory rate is 20. She is afebrile. HEENT: Unremarkable for lymphadenopathy or thyromegaly. The re is no jugular venous distention. Pupils are equal. She has no periorbital ecchymoses. Ears are not examined. CHEST: Clear bilaterally after coughing. She does have some central congestion which clears with cough. There are no wheezes, no rales, no evidence of consolidation. HEART: Regular i n rate and rhythm, tachycardic at times. There are no gallops. There is no significant murmur. ABD OMEN: Soft and nontender. Bowel sounds are present but diminished. EXTREMITIES: Unremarkable for edema, cords, or tenderness. The right shoulder is somewhat tender to palpation. Range of motion ma y be mildly decreased secondary to pain. NEUROLOGIC: Examination is intact/nonfocal. The patient do es appear to understand the importance of ongoing neurologic checks. However, she is insistent on [facility] at this time. LAB STUDIES: As outlined above. CBC was normal on admission as was metabolic panel. Beta HCG was n egative. Current potassium is 3.4. ASSESSMENT: 1. Status post fall with closed head injury. 2. Small area of subarachnoid hemorrhage and intraparenchymal hemorrhage on the left. This is stabl e so far on serial CT scans. 3. Headache secondary to #2. She has an associated nondisplaced skull fracture. We cannot take prisca y all her pain. Appropriate medications are being given. Despite this, she is threatening to sign o ut against medical advice. 4. Anxiety: Ativan will be increased. 5. History of tobacco abuse. This does appear to be associated with chronic bronchitis. p.r.n. inha led albuterol will be ordered for increased congestion. She does have a nicotine patch in place as s he continues to smoke cigarettes and does not appear to have any intention of stopping. PLAN/RECOMMENDATIONS: Followup CT scan of the head will be reviewed when available this afternoon. p.r.n. Ativan will be increased, p.r.n. morphine will be continued along with oxycodone. The patient may insist on signing out against medical advice. I will discuss this with Neurosurgery. Further plan/recommendations will be made based on her progress over the next 6-12 hours. /[id number]/MODL
[2017-12-16] MEDS: FAMOTIDINE 20 MG TAB PO SCH (19:26)
[2017-12-17] MEDS: oxyCODONE IR 5 MG TAB PO PRN ×2 (00:15→07:15)
[2017-12-17] MEDS: LORazepam 2 MG/ML INJ IVP PRN ×2 (02:04→07:16)
[2017-12-17] MEDS: ACETAMINOPHEN 325 MG TAB PO PRN ×2 (03:13→07:14)
[2017-12-17 07:21] VITALS: BP 102/59
--- NOTE | 2017-12-17 08:09 | NEUSURGPN ---
Assessment/Plan: Assessment/Plan: Assessment: 35 yo female that is s/p fall with right temporal bone fracture as well as SAH and small SDH Plan: -Repeat CT head shows stable SAH/SDH. New small left frontal lobe IPH -CT maxillofacial was neg except for noted right sided temporal bone fracture -GCS 15 -neuro intact -pt with some right sided LOBO from skull fracture most likely. We cannot take away all of her pain and spoke with the patient regarding this. Will see about adding ibuprofen today given stable CT scan if ok with Dr. Acevedo -scalp laceration intact and well approximated -ok for floor -ok for tylenol and/or oxycodone for pain, will see about adding ibuprofen. Avoid IV pain medications at this point, will DC -q4 hr neuro checks -pt understands and agrees -call with any questions or concerns -PT/OT/ST -pt discussed with Dr. Acevedo -pt with LLL nodule that Dr Dukes gave recommendations to pt/boyfriend to follow up on in 6-12 months -Dispo- Pending PT/OT/MODELING DIRECTOR recommendations. Patient tried to leave AMA yesterday as she was not having her pain adequately controlled, did end up staying and pending progress today with therapies, etc, will see about possible discharge today vs tomorrow. Subjective: Patient states at the moment her pain is controlled. Per RN anxiety better after ativan added. No new symptoms Objective: AAO x 3, PERRLA/EOMI no droop CN 2-12 grossly intact +lt touch 5/5 BUE/BLE = CDI to right scalp incision - Physician Discussed Patient with : Curtis Neurosurgery Physical Exam - Vitals, I&O, Labs I and O 12/16/17 12/17/17 12/18/17 05:59 05:59 05:59 Intake Total 1718 400 Output Total 300 Balance 1718 100 Weight 64.8 kg Intake: Oral (ml) 500 400 IV Intake (ml) 218 IV Infused (ml) 1000 Output: Urine (ml) 300 Bedside Commode 300 Other: Number of Voids Bedpan 1 Bedside Commode 3 Toilet 2 Number of Stools Toilet 1 Vital Signs Temp Pulse Resp BP Pulse Ox 36.9 C 93 21 H 102/59 L 92 12/17/17 07:18 12/17/17 07:18 12/17/17 07:18 12/17/17 07:18 12/17/17 07:18 ICD10 Worksheet Patient Problems: Problems Problem Status Onset Fall Acute SAH (subarachnoid hemorrhage) Acute Temporal bone fracture Acute
[2017-12-17] MEDS ORDERED: IBUPROFEN 600 MG TAB PO PRN (08:11)
[2017-12-17] MEDS: SENNOSIDES/DOCUSATE SODIUM TAB PO SCH (09:08)
[2017-12-17] MEDS: FAMOTIDINE 20 MG TAB PO SCH (09:08)
[2017-12-17] MEDS: NICOTINE 21 MG/24 HR PATCH TD SCH (09:08)
== END 2017-12-17 10:28 | disposition home or self-care (01) | DRG 87 ==
LOC: EDBD 10:25 → F2N 12:37
PROVIDERS: ADMIT Surgery; ATTEND Surgery
PROC: 0HQ0XZZ Repair Scalp Skin, External Approach (ICD-10-PCS; principal; 2017-12-15)
DX: S06.6X1A Traumatic subarachnoid hemorrhage with loss of consciousness of 30 minutes or less, initial encounter (principal); S02.19XA Other fracture of base of skull, initial encounter for closed fracture; S01.01XA Laceration without foreign body of scalp, initial encounter; W17.89XA Other fall from one level to another, initial encounter; Y99.0 Civilian activity done for income or pay; F41.9 Anxiety disorder, unspecified; R91.1 Solitary pulmonary nodule; F17.210 Nicotine dependence, cigarettes, uncomplicated
CPT/HCPCS: 82435-PO; 82565-PO; 82947-PO; 84132-PO; 84295-PO; 84520-PO; 85014-PO; 92507-GN; 92523-GN; 96374; 97162-GP; 97166-GO; 97530-GO; J1170; J2060; J2270; Q9967